=== PATIENT | female | born 2000 | race Caucasian/White ===

== ENCOUNTER 2020-05-18 08:00 | Outpatient (CLI) | payer OTHER | END 2020-05-18 23:59 | disposition home or self-care (01) | LOC: LAB.S 08:00 | PROVIDERS: ATTEND Physician Assistant | DX: Z33.1 Pregnant state, incidental (principal) | CPT/HCPCS: 36415; 84702 ==

== ENCOUNTER 2020-05-21 18:43 | Emergency (ER) | payer OTHER ==
[2020-05-21 19:31] LABS: BASOPHILS % (AUTO) 0.4 %; EOSINOPHILS # (AUTO) 0.1 10^3/uL (0.0-0.7); EOSINOPHILS % (AUTO) 1.1 %; LYMPHOCYTES # (AUTO) 1.5 10^3/uL (1.5-3.5); LYMPHOCYTES % (AUTO) 19.7 %; MEAN CORPUSCULAR HGB CONC 33.6 g/dL (32.0-36.0); MEAN CORPUSCULAR VOLUME 95.2 fL (81.0-99.0); MEAN PLATELET VOLUME 10.3 fL (7.9-10.8); MONOCYTES # (AUTO) 0.6 10^3/uL (0.0-1.0); MONOCYTES % (AUTO) 7.9 %; NEUTROPHILS # (AUTO) 5.4 10^3/uL (1.5-6.6); NEUTROPHILS % (AUTO) 70.8 %; PLT - PLATELET COUNT 238 10^3/uL (130-450); RED BLOOD COUNT 3.75 10^6/uL (4.20-5.40); WHITE BLOOD COUNT 7.6 x10^3/uL (4.8-10.8)
[2020-05-21 19:34] LABS: BILIRUBIN,URINE NEGATIVE (NEGATIVE); GLUCOSE, URINE (UA) NEGATIVE (NEGATIVE); KETONES,URINE (UA) TRACE mg/dL (NEGATIVE); LEUKOCYTE ESTERASE, URINE NEGATIVE (NEGATIVE); NITRITE,URINE NEGATIVE (NEGATIVE); OCCULT BLOOD,URINE NEGATIVE (NEGATIVE); PH,URINE 5.5 PH (5.0-7.5); PROTEIN,URINE NEGATIVE (NEGATIVE); UROBILINOGEN,URINE 0.2 (NORMAL) E.U./dL (NORMAL)
[2020-05-21 19:35] LABS: CLARITY,URINE CLEAR (CLEAR)
--- NOTE | 2020-05-21 19:36 | ED Physician Documentation ---
PD HPI FEMALE - Stated complaint Stated Complaint: BLEEDING/CRAMPING - Chief complaint Chief Complaint: Abd Pain - History obtained from History obtained from: Patient - Additional information Additional information: 20-year-old G1 with of unknown age. She thinks her last normal menses started April 30. Couple weeks later, she had some bleeding and cramping. She has had 6 total positive test in the interim. Now has heavy bleeding and cramping since last night again. Review of Systems Ten Systems: 10 systems reviewed and negative Constitutional: denies: Fever, Chills Throat: reports: Reviewed and negative Cardiac: reports: Reviewed and negative Respiratory: reports: Reviewed and negative PD PAST MEDICAL HISTORY - Past Medical History Past Medical History: Yes Neuro: Migraines - Past Surgical History Past Surgical History: No - Allergies Allergies/Adverse Reactions: Allergies Allergy/AdvReac Type Severity Reaction Status Date / Time No Known Drug Allergies Allergy Verified 05/21/20 18:59 - Social History Does the pt smoke?: No Smoking Status: Never smoker Does the pt drink ETOH?: No Does the pt have substance abuse?: No - Immunizations Immunizations are current?: Yes - POLST Patient has POLST: No PD ED PE NORMAL - Vitals Vital signs reviewed: Yes - General General: Alert and oriented X 3, No acute distress - HEENT HEENT: PERRL, EOMI - Neck Neck: Supple, no meningeal sign, No bony TTP - Cardiac Cardiac: RRR, No murmur - Respiratory Respiratory: No respiratory distress, Clear bilaterally - Abdomen Abdomen: Soft, Non tender - Back Back: No CVA TTP, No spinal TTP - Derm Derm: Normal color, Warm and dry - Extremities Extremities: No edema, No calf tenderness / cord - Neuro Neuro: Alert and oriented X 3, Normal speech Results - Vitals Vitals: Vital Signs - 24 hr 05/21/20 05/21/20 18:50 20:59 Temperature 37 C 36.8 C Heart Rate 96 89 Respiratory 18 16 Rate Blood Pressure 105/62 106/61 O2 Saturation 99 100 Oxygen O2 Source Room air - Labs Labs: Laboratory Tests 05/21/20 05/21/20 05/21/20 19:15 19:20 19:20 WBC 7.6 RBC 3.75 L Hgb 12.0 Hct 35.7 L MCV 95.2 MCH 32.0 H MCHC 33.6 RDW 12.0 Plt Count 238 MPV 10.3 Neut # (Auto) 5.4 Lymph # (Auto) 1.5 Nance # (Auto) 0.6 Eos # (Auto) 0.1 Baso # (Auto) 0.0 Absolute Nucleated RBC 0.00 Nucleated RBC % 0.0 Sodium Potassium Chloride Carbon Dioxide Anion Gap BUN Creatinine Estimated GFR (MDRD) Glucose Calcium HCG, Quant Urine Color YELLOW Urine Clarity CLEAR Urine pH 5.5 Ur Specific [place] >=1.030 H Urine Protein NEGATIVE Urine Glucose (UA) NEGATIVE Urine Ketones TRACE Urine Occult Blood NEGATIVE Urine Nitrite NEGATIVE Urine Bilirubin NEGATIVE Urine Urobilinogen 0.2 (NORMAL) Ur Leukocyte Esterase NEGATIVE Ur Microscopic Review NOT INDICATED Urine Culture Comments NOT INDICATED Blood Type A POSITIVE 05/21/20 05/21/20 19:20 19:20 WBC RBC Hgb Hct MCV MCH MCHC RDW Plt Count MPV Neut # (Auto) Lymph # (Auto) Nance # (Auto) Eos # (Auto) Baso # (Auto) Absolute Nucleated RBC Nucleated RBC % Sodium 134 L Potassium 3.3 L Chloride 100 L Carbon Dioxide 21 Anion Gap 13.0 BUN 14 Creatinine 0.6 Estimated GFR (MDRD) 126 Glucose 88 Calcium 8.6 HCG, Quant 2194.00 Urine Color Urine Clarity Urine pH Ur Specific [place] Urine Protein Urine Glucose (UA) Urine Ketones Urine Occult Blood Urine Nitrite Urine Bilirubin Urine Urobilinogen Ur Leukocyte Esterase Ur Microscopic Review Urine Culture Comments Blood Type - Rads (name of study) Pelvic sono Radiology: EMP read contemporaneously (R adnexal mass, concerning for ectopic) PD MEDICAL DECISION MAKING - ED course ED course: This is a G1, P0 in early , dates are not quite clear. She has a blood type of a positive and a beta hCG of 2100 which is lower than it was a few days ago. Ultrasound shows a complex right adnexal fluid collection or mass which is concerning for an ectopic and the on-call oracle architect was called to see her, Dr. Victoria. Dr Victoria saw her, requested IM methotrexate and is arranging for serial HCGs Departure - Departure Disposition: 01 Home, Self Care Clinical Impression: Ectopic of right ovary Condition: Good Record reviewed to determine appropriate education?: Yes Instructions: ED Preg Ectopic Methotrexate Tx Comments: You were seen today for pelvic pain in . Ultrasound was concerning for an ectopic and you were seen by the obstetric urban design consultant, Dr. Victoria. She asked us to give you methotrexate and she wants you to have repeat labs done in 4 days and in 7 days. She wrote the order for these labs to be done. Return if worsening or if pain is severe. Forms: Activity restrictions
[2020-05-21 19:41] LABS: CALCIUM 8.6 mg/dL (8.5-10.3); CREATININE 0.6 mg/dL (0.4-1.0)
[2020-05-21] MEDS ORDERED: HYDROmorphone 1 MG/ML CARPUJECT IVP STA (20:48)
[2020-05-21] MEDS ORDERED: ONDANSETRON 4 MG/2 ML VIAL IVP STA (21:04)
--- NOTE | 2020-05-21 21:29 | Ultrasound Report ---
PROCEDURE: OB Transvaginal INDICATIONS: vb/preg Additional information: Nonacute exam findings. Downtrending beta hCG. OUTSIDE/PRIOR DATING DATA: Last menstrual period (LMP): Unknown. TECHNIQUE: Real-time scanning was performed of the fetus and maternal pelvic organs, with image documentation. Images for this exam are located under the OB first trimester exam (accession# [id number]) perform ed at the same time. COMPARISON: None. FINDINGS: No intrauterine is seen. A small amount of fluid is seen in the endometrial jeronimo l without a discrete gestational sac. A heterogeneous lesion is seen in the right adnexa that cannot be definitely from the right ovary. This collection is nonspecific and could represent blood products versus ectopic or other adnexal mass. The left ovary appears normal. A small amount of free fluid is seen in the pelvis and right adnexa. Limited images through the kidneys demonstrate no hydronephrosis. IMPRESSION: 1. No intrauterine is identified and ectopic is not excluded. 2. Large complex right adnexal collection or mass is of uncertain etiology and may represent organiz ing blood products along other etiologies. Recommend correlation with clinical findings and beta hCG values along with repeat ultrasound as needed. Pelvic MRI may be obtained for further evaluation if c linically indicated. Findings were discussed with Dr. Victoria by telephone on 04/21/2020 at approximately 9:15 PM. Reviewed by: Francis Stiles MD on 05/21/2020 9:28 PM PDT Approved by: Francis Stiles MD on 05/21/2020 9:28 PM PDT Station ID: [id number]
[2020-05-21] MEDS ORDERED: METHOTREXATE 50 MG/2 ML MDV IM STA (21:49)
[2020-05-21] MEDS ORDERED: HYDROcod/ACET 5/325 Prepack 4 PO STA (21:50)
--- NOTE | 2020-05-21 22:01 | CONSULTATION NOTE ---
Referring Provider Name of Referring Provider:: Dr. Cooper Consult Date: 05/21/20 Chief Complaint - Chief Complaint Chief Complaint: Possible ectopic vs SAB History of Present Illness - History Obtained From Records Reviewed: Walk in clinic History obtained from: patient - History of Present Illness HPI Comment/Other: Patient is a 20 yo here with vaginal bleeding, pelvic pain, and positive test. She was seen in the Walk In clinic on 05/18/2020. [facility] reported the following: Sexually active, normally using condoms, about 4 weeks ago had intercourse without condom, took Plan B. Had light vaginal bleeding about 2 weeks after the intercourse, thought was her period coming just a bit early due to the Plan B. 10-14 days later had bad abdominal cramping and 5-6 days of heaving vag bleeding. Took home preg test a week ago when bleeding started--was positive, has taken 4-5 more and all have been positive(most recently 4 days). The bleeding was very light yesterday and has completely stopped. Abdominal pain completely gone. Feels normal, no sense of dizziness or near syncope. No fever or chills. She had an HCG drawn at that time that returned at 3094. Pain and bleeding had subsided. Today she had another bout of pain and heavy bleeding. At present, she does not have any bleeding. HCG today is 2194. She underwent a pelvic us. The formal read is pending. I reviewed the images with DI. There is a 6.4 cm mass in the pelvis but the nature is unclear. No obvious gestational sac and no pole. The uterus has a small cystic structure and some fluid in the endometrial canal but no clear intrauterine . Patient is active [employer]. PMH: unremarkable PSH: Unremarkable History - Past Medical History Neuro: reports: Migraines MRSA Hx?: No - POLST Patient has POLST: No Meds/Allgy - Allergies Allergies/Adverse Reactions: Allergies Allergy/AdvReac Type Severity Reaction Status Date / Time No Known Drug Allergies Allergy Verified 05/21/20 18:59 Review of Systems - Other Findings Other Findings: As per HPI, otherwise remaining systems are negative. Exam - Vital Signs Reviewed Vital Signs: Yes Vital Signs: Vital Signs x48h Temp Pulse Resp BP Pulse Ox 05/21/20 20:59 98.2 F 89 16 106/61 100 05/21/20 18:50 98.6 F 96 18 105/62 99 - Physical Exam General Appearance: positive: No acute distress Neck: positive: Nml inspection Respiratory: positive: Chest non-tender, No respiratory distress, Breath sounds nml Cardiovascular: positive: Regular rate & rhythm Peripheral Pulses: positive: 1+ Abdomen: positive: Other (Soft, non-distended, mildly tender) Skin: positive: Color nml Extremities: positive: Non-tender, No pedal edema Neurologic/Psychiatric: positive: Oriented x3 Comments/Other: PELVIC: NEFG. NL BSUMA. No active bleeding at introitus. BME reveals + CME with some adnexal tenderness on the right. Less TTP on left. Bladder non-tender. Trace pink discharge on exam glove. Conclusion/Plan - Diagnosis Diagnosis: Possible ectopic vs SAB - Plan Plan: Reviewed that with the pattern of HCG levels over the last three days and the ambiguity of pelvic imaging, patient could be having a spontaneous vs an ectopic. Reviewed HCG patterns with ectopic pregnancies usually show a rise in HCG but levels don't typically double Q3 days as with a normal IUP With SAB, HCG levels decline. Her HCG levels have dropped by about 900 over the last 3 days. The pelvic US is unclear. The large heterogeneous mass may represent an ectopic vs organized clot after CL cyst rupture, vs other etiology There is no clear gestational sac or pole. It is hard to differentiate whether the clincial scenario is an SAB vs an atypical ectopic. We reviewed that options for management include: 1) Expectant management with Q3 days HCG levels 2) Treatment with methotrexate for presumed ectopic. 3)Proceed with diagnostic laparoscopy with possible salpingectomy/oophorectomy My recommendation was to treat with methotrexate as no harm would come from treating and SAB with MTHX and it could possible treat an atypical ectopic. Patient is opting for treatment with MTHX 50 mg/m2 She will follow-up with an HCG level on day 4 and day 7 after MTHX administration. Orders were submitted to [facility]. -LFTs added to intake labs -RH positive -With resolution of HCG levels, will repeat pelvic us in 4 weeks and sooner with plateau or rise in HCG (expect rise in HCG on day 4 and drop by day 7). Warning signs were reviewed. FU in 3 days for HCG testing - Lab Results Fish Bones: 05/21/20 19:20 05/21/20 19:20
[2020-05-21 22:43] VITALS: BP 104/63
[2020-05-21 22:51] LABS: BILIRUBIN,DIRECT 0.1 mg/dL (0.1-0.5); BILIRUBIN,TOTAL 0.7 mg/dL (0.2-1.0)
== END 2020-05-21 22:42 | disposition home or self-care (01) ==
LOC: ED 18:43
DX: O00.201 Right ovarian pregnancy without intrauterine pregnancy (principal)
CPT/HCPCS: 36415; 76801; 76817; 80048; 80076; 81003; 84702; 85025; 86900; 86901; 96372; 96374; 96375; 99284; 99285; J1170; J9250; 81001; 87086

== ENCOUNTER 2020-06-02 19:06 | Outpatient (CLI) | payer OTHER | END 2020-06-02 19:07 | disposition home or self-care (01) | LOC: LAB 19:06 | PROVIDERS: ATTEND Obstetrics & Gynecology | DX: O00.90 Unspecified ectopic pregnancy without intrauterine pregnancy (principal) | CPT/HCPCS: 36415; 84702 ==

== ENCOUNTER 2020-08-13 20:42 | Emergency (ER) | payer OTHER ==
[2020-08-13 20:51] VITALS: BP 130/90
--- NOTE | 2020-08-13 21:38 | ED Physician Documentation ---
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 Now she has a scratchy throat and a runny nose. No fevers or body aches. Her road supervisor of engines sent her to the hospital posthaste for a Covid test. Review of Systems Constitutional: denies: Fever, Chills, Myalgias, Fatigue Nose: reports: Rhinorrhea / runny nose PD PAST MEDICAL HISTORY - Past Medical History Neuro: Migraines - Past Surgical History Past Surgical History: No - Allergies Allergies/Adverse Reactions: Allergies Allergy/AdvReac Type Severity Reaction Status Date / Time clarithromycin [From Biaxin] Allergy Unknown Verified 08/13/20 20:48 - Social History Does the pt smoke?: No Smoking Status: Never smoker Does the pt drink ETOH?: No Does the pt have substance abuse?: No - Immunizations Immunizations are current?: Yes - POLST Patient has POLST: No PD ED PE NORMAL - Vitals Vital signs reviewed: Yes - General General: Alert and oriented X 3, No acute distress - Derm Derm: No rash - Neuro Neuro: Alert and oriented X 3, Normal speech Results - Vitals Vitals: Vital Signs - 24 hr 08/13/20 20:48 Temperature 36.5 C Heart Rate 88 Respiratory 16 Rate Blood Pressure 130/90 H O2 Saturation 100 Oxygen O2 Source Room air Departure - Departure Disposition: Home, Self Care Clinical Impression: Runny nose Condition: Good Record reviewed to determine appropriate education?: Yes Instructions: ED URI Viral Comments: You have a Covid test pending. You need to self quarantine until the result is done and negative. Do not leave your house. Do not get near anybody. The results should be done in 48 to 72 hours. We will call with a positive result, the fastest way to get a negative result for confirmation though is to go to the hospital website at [email or web address], click on the my [facility] tab and sign up for the patient portal. If any friends or family get sick and would like to have a Covid test done, but do not have signs or symptoms that would necessitate being hospitalized, we encourage testing through our coronavirus swabbing station, call [phone] to schedule an appointment. Forms: Activity restrictions
== END 2020-08-13 21:40 | disposition home or self-care (01) ==
LOC: ED 20:42
DX: U07.1 COVID-19 (principal); R09.89 Other specified symptoms and signs involving the circulatory and respiratory systems
CPT/HCPCS: 99282; 99283

== ENCOUNTER 2020-11-07 13:36 | Emergency (ER) | payer OTHER ==
--- OUTSIDE RECORDS SUMMARY | 2020-11-07 13:38 | EXTERNAL MEDICAL SUMMARY RPT | Continuity of Care Document ---
:2000 Demographics Phone Unavailable Preferred Language Unknown Marital Status Unknown Hoahaoism Affiliation Unknown Race Unknown Ethnic Group Unknown Author Organization [place] Address [address] [phone] Phone Social History date description facility [phone]
--- NOTE | 2020-11-07 13:49 | ED Physician Documentation ---
PD HPI FEMALE - Stated complaint Stated Complaint: FEMAL - Chief complaint Chief Complaint: General - History obtained from History obtained from: Patient - History of Present Illness Timing - onset: How many weeks ago (2) Timing - duration: Weeks (2) Timing - details: Gradual onset, Waxing and waning (more the past few days.) Associated symptoms: Pelvic pain (cramping intermittent), Vaginal discharge, Dysuria. No: Fever, Vaginal bleeding, Genital sore/lesion, Urinary frequency Contributing factors: Sexually active. 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 denies: Vomiting, Diarrhea : reports: Dysuria, Frequency, Discharge. denies: Irregular menses Skin: denies: Rash, Lesions PD PAST MEDICAL HISTORY - Past Medical History Past Medical History: Yes Cardiovascular: None Respiratory: None Neuro: Migraines Endocrine/Autoimmune: None GI: None GRADUATING MACHINE OPERATOR: None : None HEENT: None Psych: None Musculoskeletal: None Derm: None - Past Surgical History Past Surgical History: Yes /GRADUATING MACHINE OPERATOR: Other - Present Medications Home Medications: Ambulatory Orders Medication Instructions Recorded Confirmed Doxycycline Hyclate 100 mg PO BID #14 11/07/20 - Allergies Allergies/Adverse Reactions: Allergies Allergy/AdvReac Type Severity Reaction Status Date / Time clarithromycin [From Biaxin] Allergy Unknown Verified 11/07/20 13:38 - Social History Does the pt smoke?: No Smoking Status: Never smoker Does the pt drink ETOH?: Yes Does the pt have substance abuse?: No - Immunizations Immunizations are current?: Yes - POLST Patient has POLST: No PD ED PE NORMAL - Vitals Vital signs reviewed: Yes - General General: Alert and oriented X 3, No acute distress, Well developed/nourished - Abdomen Abdomen: Soft, Non tender, Non distended - Female Female : Insulation Power Unit Tender present, Other (External genitalia is normal. The introitus is without any rash or sores nor discharge. Vaginal vault shows a clear mucousy discharge without any malodor. No cervicitis is seen.) - Rectal Rectal: Deferred - Back Back: No CVA TTP - Derm Derm: Normal color, No rash Results - Vitals Vitals: Vital Signs - 24 hr 11/07/20 11/07/20 13:39 15:01 Temperature 36.8 C 36.6 C Heart Rate 80 80 Respiratory 16 16 Rate Blood Pressure 127/75 124/76 O2 Saturation 98 98 Oxygen O2 Source Room air PD MEDICAL DECISION MAKING - ED course Complexity details: considered differential (Her symptoms and exam are most likely consistent with chlamydia. We did obtain samples for BV and STD. I told her these will result likely tomorrow. We can start treatment with doxycycline twice daily for a week but I would have her defer telling her partner until we get confirmed results. ), d/w patient Departure - Departure Disposition: 01 Home, Self Care Clinical Impression: Acute vaginitis Condition: Stable Record reviewed to determine appropriate education?: Yes Follow-Up: ANUEL Wilkes [Provider Group] Prescriptions: Doxycycline Hyclate 100 mg PO BID #14 Comments: The results of your vaginal PCR tests will result likely tomorrow. At this point I would start treatment with doxycycline twice daily as prescribed as I feel that that will be the likely treatment. Typically will call you with the test results, and certainly we will call you if any need to change antibiotic choice. Stay well-hydrated. Tylenol or ibuprofen if needed for discomfort. Based on your vaginal test results, you would need to notify your sexual partner of the findings as these can be transmissible to partners (even the non-STI vaginosis he is at times). Discharge Date/Time: 11/07/20 15:01
--- OUTSIDE RECORDS SUMMARY | 2020-11-07 14:32 | EXTERNAL MEDICAL SUMMARY RPT | Continuity of Care Document ---
:2000 Demographics Phone Unavailable Preferred Language Unknown Marital Status Unknown Islam Affiliation Unknown Race Unknown Ethnic Group Unknown Author Organization [place] Address [address] [place] [address] Phone Social History date description facility [phone]
[2020-11-07] MEDS ORDERED: DOXYCYCLINE 100 MG TABLET PO STA (14:45)
[2020-11-07 15:04] VITALS: BP 124/76
[2020-11-07 17:06] LABS: BACTERIAL VAGINOSIS DNA POSITIVE (NEGATIVE); CANDIDA GLABRATA DNA NEGATIVE (NEGATIVE); CANDIDA GROUP DNA NEGATIVE (NEGATIVE); CANDIDA KRUSEI DNA NEGATIVE (NEGATIVE); TRICHOMONAS VAGINALIS DNA NEGATIVE (NEGATIVE)
[2020-11-07 21:09] LABS: CHLAMYDIA TRACHOMATIS DNA NEGATIVE (NEGATIVE); NEISSERIA GONORRHOEAE DNA NEGATIVE (NEGATIVE); TRICHOMONAS VAGINALIS DNA NEGATIVE (NEGATIVE)
== END 2020-11-07 15:01 | disposition home or self-care (01) ==
LOC: ED 13:36
DX: N76.0 Acute vaginitis (principal)
CPT/HCPCS: 87481; 87491; 87591; 87661; 87801; 99283; 99284; A9270

== ENCOUNTER 2023-06-16 12:05 | Emergency (ER) | payer OTHER ==
[2023-06-16 12:18] VITALS: BP 129/70; O2SAT 98
[2023-06-16] MEDS ORDERED: SUMAtriptan 25 MG TABLET PO STA (12:21)
[2023-06-16] MEDS ORDERED: IBUPROFEN 600 MG TABLET PO STA (12:21)
--- NOTE | 2023-06-16 12:28 | ED Physician Documentation ---
PD HPI FEMALE - Stated complaint Stated Complaint: ,BARROSO - Chief complaint Chief Complaint: Abd Pain - History obtained from History obtained from: Patient - Additional information Additional information: For about a week since her last. She has had discharge and vaginal itching. Would like to be checked for BV and yeast as she has had both before. She developed her typical migraine headache last night which she has not taken anything for. No fevers. 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 : None HEENT: None Psych: None Musculoskeletal: None Derm: None - Past Surgical History Past Surgical History: Yes /DECKHAND FISHING VESSEL: Other - Present Medications Home Medications: Ambulatory Orders Medication Instructions Recorded Confirmed Fluconazole [Diflucan] 150 mg PO ONCE PRN #1 tablet 06/16/23 - Allergies Allergies/Adverse Reactions: Allergies Allergy/AdvReac Type Severity Reaction Status Date / Time clarithromycin [From Biaxin] Allergy Unknown Verified 06/16/23 12:16 - Social History Does the pt smoke?: No Smoking Status: Never smoker Does the pt drink ETOH?: Yes Does the pt have substance abuse?: No - Immunizations Immunizations are current?: Yes - POLST Patient has POLST: No PD ED PE NORMAL - Vitals Vital signs reviewed: Yes - General General: Alert and oriented X 3, No acute distress - Abdomen Abdomen: Normal bowel sounds, Soft, Non tender, Non distended - Neuro Neuro: Alert and oriented X 3, Normal speech Results - Vitals Vitals: Vital Signs - 24 hr 06/16/23 06/16/23 06/16/23 12:12 12:20 12:45 Temperature 36 C L Heart Rate 83 Respiratory 15 17 17 Rate Blood Pressure 129/70 O2 Saturation 98 Oxygen O2 Source Room air - Labs Labs: Laboratory Tests 06/16/23 12:30 C. glabrata (PCR) NEGATIVE C. krusei (PCR) NEGATIVE Deisi species DNA NEGATIVE T. vaginalis (PCR) NEGATIVE Bact Vaginosis (PCR) NEGATIVE PD Medical Decision Making - ED course ED course: 23-year-old with pelvic pain and typical migraine. Given ibuprofen and Imitrex. Preferring to self swab for diagnosis. Subsequent to her discharge her BV panel came back negative. Discussed with HER by phone, suspect she may still have a yeast infection given her symptoms and prescribed Diflucan to the pharmacy but given close return precautions. Departure - Departure Disposition: 01 Home, Self Care Clinical Impression: Vaginal discharge Condition: Stable Record reviewed to determine appropriate education?: Yes Instructions: ED Vaginosis Bacterial, ED Vaginal Infec Fungal Deisi Prescriptions: Fluconazole [Diflucan] 150 mg PO ONCE PRN #1 tablet PRN Reason: yeast infection Comments: You are seen today for vaginal discharge and a migraine. A bacterial vaginosis and yeast test is pending. We will call you with a positive result and send appropriate treatment to [facility] once that is done. It does take a few hours for the test to be run. Return if worse. Follow-up with your primary care physician within the week for recheck. Forms: PCP List Discharge Date/Time: 06/16/23 13:14
[2023-06-16 15:02] LABS: BACTERIAL VAGINOSIS DNA NEGATIVE (NEGATIVE); CANDIDA GLABRATA DNA NEGATIVE (NEGATIVE); CANDIDA GROUP DNA NEGATIVE (NEGATIVE); CANDIDA KRUSEI DNA NEGATIVE (NEGATIVE); TRICHOMONAS VAGINALIS DNA NEGATIVE (NEGATIVE)
== END 2023-06-16 13:14 | disposition home or self-care (01) ==
LOC: ED 12:05
DX: N89.8 Other specified noninflammatory disorders of vagina (principal); G43.909 Migraine, unspecified, not intractable, without status migrainosus
CPT/HCPCS: 81514; 99283; A9270